=== PATIENT | male | born 1960 | race Caucasian/White ===

== ENCOUNTER 2023-06-17 08:30 | Day surgery (SDC) | payer BC ==
[2023-06-11 13:56] VITALS: BMI 30.1
[2023-06-17 09:16] LABS: BASO % 1.9 % (0-2.0); EOS % 4.2 % (0-4.5); HEMATOCRIT 43.2 % (35.4-49); HEMOGLOBIN 14.1 GM/dL (11.7-16.9); LYMPH % 26.7 % (8-40); MCH 29.5 pg (25.7-33.7); MCHC 32.7 g/dl (32.0-35.9); MEAN CELL VOLUME 90.3 fl (80-96); MEAN PLT VOLUME 8.1 fl (7.5-11.1); MONO % 9.7 % (3.8-10.2); NEUT % 57.5 % (42.8-82.8); PLATELET COUNT 347 10^3/uL (134-434); RBC 4.79 M/mm3 (4.00-5.60); RDW 15.9 % (11.9-15.9); WHITE BLOOD COUNT 7.9 K/mm3 (4.0-10.0)
[2023-06-17 09:21] LABS: INR 0.97 (0.83-1.09); PROTHROMBIN TIME (PATIENT) 11.2 SEC (9.7-13.0)
[2023-06-17 09:42] LABS: POTASSIUM 4.7 mmol/L (3.5-5.1)
[2023-06-17 09:44] LABS: CALCIUM 9.7 mg/dL (8.5-10.1)
[2023-06-17 09:45] LABS: ALBUMIN 3.2 g/dl (3.4-5.0)
[2023-06-17 09:48] LABS: CREATININE 2.8 mg/dL (0.55-1.3)
[2023-06-17 09:49] LABS: BILIRUBIN,TOTAL 0.5 mg/dL (0.2-1)
[2023-06-17 09:50] LABS: TOT PROT 7.1 g/dl (6.4-8.2)
[2023-06-17 11:57] VITALS: RESP 20
[2023-06-17 12:16] VITALS: BP 102/65; PULSE 94; TEMP 97.5
[2023-06-17 13:43] LABS: BF GLUCOSE (CSF ONLY) 64 mg/dL (40-70)
[2023-06-17 13:54] LABS: CSF APPEARANCE CLEAR (CLEAR); CSF COLOR COLORLESS (COLORLESS)
[2023-06-17 13:55] LABS: CSF WBC 3 mm3 (0-5)
== END 2023-06-17 12:35 | disposition home or self-care (01) ==
LOC: JRADIR 08:30
PROVIDERS: ATTEND Internal Medicine
PROC: 009U3ZX Drainage of Spinal Canal, Percutaneous Approach, Diagnostic (ICD-10-PCS; principal; 2023-06-17)
PROC: B01BZZZ Fluoroscopy of Spinal Cord (ICD-10-PCS; 2023-06-17)
DX: G62.9 Polyneuropathy, unspecified (principal)
CPT/HCPCS: 36415; 62272; 80053; 82945; 83873; 83916; 84157; 85025; 85610; 86256